=== PATIENT | male | born 1965 | race Hispanic/Latino ===

== ENCOUNTER 2021-02-23 12:26 | Outpatient (CLI) | payer OTHER ==
--- NOTE | 2021-02-23 13:36 | XRay Report ---
BILATERAL KNEES 6 VIEWS INDICATION / CLINICAL INFORMATION: BILATERAL KNEE PAIN. COMPARISON: None available. 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 No other significant skeletal abnormality Signer Name: Vu Gonzalez MD FACR Signed: 02/23/2021 1:31 PM Workstation Name: [id number]
--- NOTE | 2021-02-23 13:36 | XRay Report ---
LUMBAR SPINE 4 VIEWS INDICATION / CLINICAL INFORMATION: BACK PAIN. COMPARISON: None available. FINDINGS: Mild diffuse degenerative change. No other significant skeletal abnormality. Alignment is normal. Signer Name: Vu Gonzalez MD FACR Signed: 02/23/2021 1:32 PM Workstation Name: [id number]
== END 2021-02-23 12:27 | disposition home or self-care (01) ==
LOC: XRAY 12:26
PROVIDERS: ATTEND Internal Medicine
DX: M47.816 Spondylosis without myelopathy or radiculopathy, lumbar region (principal); M17.0 Bilateral primary osteoarthritis of knee
CPT/HCPCS: 72100